=== PATIENT | female | born 1995 | race Caucasian/White ===

== ENCOUNTER 2019-06-21 10:32 | Day surgery (SDC) | payer BC ==
[~2019-06-21 10:32] MED LIST: Buffered Lidocaine 1% SYRIN* 1 ML/SYRINGE INTRADERM ONE; Lactated Ringers 1000 ML Bag* 1,000 ML IV SCH
[2019-06-21] MEDS ORDERED: ceFAZolin 2 GM PREMIX in ORs 2 GM/50 ML BAG ONE (11:42)
[2019-06-21] MEDS ORDERED: Midazolam* 1 MG/ML 2 ML VIAL (2 MG) ONE ×2 (13:02→14:11)
[2019-06-21] MEDS ORDERED: fentaNYL* 50 MCG/ML 2 ML VIAL (100 MCG VIAL) ONE (13:38)
[2019-06-21] MEDS ORDERED: Propofol* 10 MG/ML 20 ML BTL ONE (13:38)
[2019-06-21] MEDS ORDERED: Lidocaine 1% w EPI 1:100,000* MDV 20 ML VIAL ONE ×2 (13:41→13:42)
[2019-06-21] MEDS ORDERED: Bupivacaine 0.25% SDV* 30 ML ONE (13:42)
[2019-06-21] MEDS ORDERED: Mineral Oil Sterile, TOPICAL* 25 ML BTL ONE (14:59)
[2019-06-21 15:39] VITALS: BP 123/59
[2019-06-21] MEDS ORDERED: Naloxone* 0.4 MG/ML 1 ML VIAL IV PRN (15:49)
== END 2019-06-21 17:20 | disposition home or self-care (01) ==
LOC: OR 10:32
PROVIDERS: ATTEND Plastic Surgery
DX: C44.319 Basal cell carcinoma of skin of other parts of face (principal); C44.41 Basal cell carcinoma of skin of scalp and neck; E03.9 Hypothyroidism, unspecified; Z85.841 Personal history of malignant neoplasm of brain; E23.0 Hypopituitarism; G40.89 Other seizures; Z85.828 Personal history of other malignant neoplasm of skin
CPT/HCPCS: 81025; 88305; 88331; 88332; A9270-GY; J0690; J2250; J2704; J3010; J3490